=== PATIENT | male | born 1955 | race Caucasian/White ===

== ENCOUNTER 2017-09-11 14:19 | Inpatient (IN) | payer OTHER ==
[~2017-09-11] VITALS: Ht 175.3 cm; Wt 88.5 kg
[2017-09-11 15:12] LABS: CLARITY,URINE CLEAR (CLEAR); COLOR,URINE YELLOW (YELLOW); KETONES,URINE NEGATIVE (NEGATIVE); LEUKOCYTE ESTERASE ,URINE NEGATIVE (NEGATIVE); NITRITE,URINE NEGATIVE (NEGATIVE); PROTEIN,URINE DIPSTICK NEGATIVE (NEGATIVE); URINE UROBILINOGEN 0.2 mg/dL (0.2 - 1)
[2017-09-11 15:13] LABS: BILIRUBIN,URINE NEGATIVE (NEGATIVE)
[2017-09-11 15:24] LABS: EPITHELIAL CELLS,URINE FEW /LPF
[2017-09-11 17:42] LABS: BASOPHILS # (AUTO) 0.1 (0.0-0.1); BASOPHILS % 0.6 % (0.0-1.0); EOSINOPHILS # (AUTO) 0.2 (0.0-0.4); EOSINOPHILS % 2.2 % (0.0-6.0); HEMATOCRIT 49.1 % (38.2-49.6); HEMOGLOBIN 16.6 g/dL (14.0-18.0); LYMPHOCYTES # (AUTO) 1.8 (1.0-3.2); LYMPHOCYTES % 20.1 % (18.0-39.1); MEAN CORPUSCULAR HGB CONC 33.8 g/dL (31-35); MEAN CORPUSCULAR VOLUME 94.8 fL (81-99); MONOCYTES # (AUTO) 0.4 (0.2-0.8); MONOCYTES % 4.9 % (4.4-11.3); NEUTROPHILS # (AUTO) 6.3 (2.1-6.9); NEUTROPHILS % 71.9 % (38.7-80.0); PLATELET COUNT 165 x10e3/uL (140-360); RED BLOOD COUNT 5.18 x10e6/uL (4.3-5.7); RED CELL DISTRIBUTION WIDTH 12.6 % (11.7-14.4)
[2017-09-11 17:59] LABS: ANION GAP 14.3 mmol/L (8-16); CALCIUM 10.2 mg/dL (8.4-10.2)
[2017-09-11 18:02] LABS: POTASSIUM 5.3 mmol/L (3.5-5.1)
--- NOTE | 2017-09-11 18:05 | Diagnostic Imaging Report ---
EXAM: CT Abdomen and Pelvis WITHOUT contrast INDICATION: Right flank pain. Kidney stones. COMPARISON: None. TECHNIQUE: Abdomen and pelvis were scanned utilizing a multidetector helical scanner from the lung base to the pubic symphysis without administration of IV contrast. Absence of intravenous contrast decreases sensitivity for detection of focal lesions and vascular pathology. Coronal and sagittal reformations were obtained. Routine protocol was performed. IV CONTRAST: None. ORAL CONTRAST: Water RADIATION DOSE: Total DLP: 657.41 mGy*cm Estimated effective dose: (DLP x 0.015 x size factor) mSv COMPLICATIONS: None FINDINGS: LINES and TUBES: None. LOWER THORAX: Unremarkable HEPATOBILIARY: No focal hepatic lesions. No biliary ductal dilation. GALLBLADDER: No radio-opaque stones or sludge. No wall thickening. SPLEEN: No splenomegaly. PANCREAS: No focal masses or ductal dilatation. ADRENALS: No adrenal nodules. KIDNEYS/URETERS: 4 mm calculus is present within the distal right ureter on coronal image 61. There is mild dilatation of the right ureter and pelvicalyceal system. 2 mm calculus in the upper pole of the right kidney on coronal image 68. 4 mm calculus is present the lower pole of the left kidney on coronal image 61. 2 mm calculus is in the upper pole of the left kidney on coronal images 66. Bilateral low-attenuation renal lesions suggestive of cysts, the largest in the left kidney measuring 4.4 cm on image 26 series 2. GI TRACT: No abnormal distention, wall thickening, or evidence of bowel obstruction. Appendix is normal. A few small scattered colonic diverticula without diverticulitis. PELVIC ORGANS/BLADDER: Unremarkable. LYMPH NODES: No lymphadenopathy. VESSELS: Atherosclerotic calcifications of the abdominal aorta and iliac arteries with mild focal ectasia of the infrarenal abdominal aorta measuring 2.7 cm on image 47 series 2. PERITONEUM / RETROPERITONEUM: No free air or fluid. BONES: Mild levoscoliosis and multilevel degenerative changes of the lumbar spine. SOFT TISSUES: Unremarkable. IMPRESSION: 1. 4 mm obstructing calculus in the distal right ureter. Mild right hydronephrosis. 2. Bilateral subcentimeter renal calculi as detailed above. 3. Bilateral low-attenuation renal lesions consistent with cysts. Signed by: Dr. Lloyd Rivas M.D. on 09/11/2017 6:01 PM
[2017-09-11] MEDS ORDERED: MORPHINE SULFATE 2 MG/ML SYR IV PRN (19:00)
[2017-09-11] MEDS ORDERED: ONDANSETRON HCL INJ 2 MG/ML VIAL IV PRN (19:00)
--- OUTSIDE RECORDS SUMMARY | 2017-09-11 20:10 | XMS REPORT ---
Author Author [facility] Address Unknown Phone Unavailable Care Team Providers Care Order Taker Name Role Phone LYUDMILA FINCH Unavailable Unavailable Problems This patient has no known problems. Allergies, Adverse Reactions, Alerts This patient has no known allergies or adverse reactions. Medications This patient has no known medications. Results Test Description Test Time Test Comments Text Results Atomic Results Result Comments CT ABDOMEN/PELVIS WO [address] [address] Patient Name: NELDA ELMORE MR #: [id number] : 1955 Age/Sex: 62/M Req #: [id number] Adm Physician: Ordered by: RIVER CRAWFORD PULMONARY PHYSICIAN Report #: [id number] Location: ER Room/Bed: Procedure: [id number] CT/CT ABDOMEN/PELVIS WO Exam Date: 09/11/17 Exam Time: 1715 REPORT STATUS: Signed EXAM: CT Abdomen and Pelvis WITHOUT contrast INDICATION: Right flank pain. Kidney stones. COMPARISON: None. TECHNIQUE: Abdomen and pelvis were scanned utilizing a multidetector helical scanner from the lung base to the pubic symphysis without administration of IV contrast. Absence of intravenous contrast decreases sensitivity for detection of focal lesions and vascular pathology. Coronal and sagittal reformations were obtained. Routine protocol was performed. IV CONTRAST: None. ORAL CONTRAST: Water RADIATION DOSE: Total DLP: 657.41 mGy*cm Estimated effective dose: (DLP x 0.015 x size factor) mSv COMPLICATIONS: None FINDINGS: LINES and TUBES: None. LOWER THORAX : Unremarkable HEPATOBILIARY: No focal hepatic lesions. No biliary ductal dilation. GALLBLADDER: No radio-opaque stones or sludge. No wall thickening. SPLEEN: No splenomegaly. PANCREAS: No focal masses or ductal dilatation. ADRENALS: No adrenal nodules. KIDNEYS/URETERS: 4 mm calculus is present within the distal right ureter on coronal image 61. There is mild dilatation of the right ureter and pelvicalyceal system. 2 mm calculus in the upper pole of the right kidney on coronal image 68. 4 mm calculus is present the lower pole of the left kidney on coronal image 61. 2 mm calculus is in the upper pole of the left kidney on coronal images 66. Bilateral low-attenuation renal lesions suggestive of cysts, the largest in the left kidney measuring 4.4 cm on image 26 series 2. GI TRACT: No abnormal distention, wall thickening, or evidence of bowel obstruction. Appendix is normal. A few small scattered colonic diverticula without diverticulitis. PELVIC ORGANS/BLADDER: Unremarkable. LYMPH NODES: No lymphadenopathy. VESSELS: Atherosclerotic calcifications of the abdominal aorta and iliac arteries with mild focal ectasia of the infrarenal abdominal aorta measuring 2.7 cm on image 47 series 2. PERITONEUM / RETROPERITONEUM : No free air or fluid. BONES: Mild levoscoliosis and multilevel degenerative changes of the lumbar spine. SOFT TISSUES: Unremarkable. IMPRESSION: 1. 4 mm obstructing calculus in the distal right ureter. Mild right hydronephrosis. 2. Bilateral subcentimeter renal calculi as detailed above. 3. Bilateral low-attenuation renal lesions consistent with cysts. Signed by: Dr. Lloyd Yoder M.D. on 09/11/2017 6:01 PM Dictated By: CAN YODER MD, MD 00 Transcribed By: KELSEY on 09/11/171800 COPY TO: RIVER CRAWFORD NP
[2017-09-11 22:57] LABS: ALBUMIN 3.8 g/dL (3.5-5.0); ANION GAP 11.6 mmol/L (8-16); CALCIUM 9.9 mg/dL (8.4-10.2); CREATININE, SERUM 2.89 mg/dL (0.72-1.25); POTASSIUM 4.6 mmol/L (3.5-5.1)
[2017-09-11] MEDS ORDERED: METOPROLOL TART25 MG PO (23:50)
[2017-09-11] MEDS ORDERED: FOLIC ACID1 MG PO (23:50)
[2017-09-11] MEDS ORDERED: ALLOPURINOL300 MG PO (23:50)
[2017-09-11] MEDS ORDERED: LORAZEPAM1 MG PO (23:50)
[2017-09-11] MEDS ORDERED: LISINOPRIL2.5 MG PO (23:50)
[2017-09-11] MEDS ORDERED: SIMVASTATIN40 MG PO (23:50)
[2017-09-12] MEDS: SODIUM CHLORIDE 0.9% 1000ML 1,000 ML IV SCH ×2 (00:15→09:11)
[2017-09-12 03:30] VITALS: BP 152/70
[2017-09-12 07:24] LABS: BASOPHILS % 0.5 % (0.0-1.0); EOSINOPHILS # (AUTO) 0.2 (0.0-0.4); EOSINOPHILS % 2.7 % (0.0-6.0); HEMATOCRIT 43.7 % (38.2-49.6); HEMOGLOBIN 14.8 g/dL (14.0-18.0); LYMPHOCYTES # (AUTO) 2.1 (1.0-3.2); LYMPHOCYTES % 24.9 % (18.0-39.1); MEAN CORPUSCULAR HEMOGLOBIN 32.3 pg (28-32); MEAN CORPUSCULAR HGB CONC 33.9 g/dL (31-35); MEAN CORPUSCULAR VOLUME 95.4 fL (81-99); MONOCYTES # (AUTO) 0.8 (0.2-0.8); MONOCYTES % 9.3 % (4.4-11.3); NEUTROPHILS # (AUTO) 5.4 (2.1-6.9); NEUTROPHILS % 62.3 % (38.7-80.0); PLATELET COUNT 153 x10e3/uL (140-360); RED BLOOD COUNT 4.58 x10e6/uL (4.3-5.7); RED CELL DISTRIBUTION WIDTH 12.7 % (11.7-14.4)
[2017-09-12 07:44] LABS: ANION GAP 11.6 mmol/L (8-16); CALCIUM 9.2 mg/dL (8.4-10.2); CREATININE, SERUM 2.54 mg/dL (0.72-1.25); POTASSIUM 4.6 mmol/L (3.5-5.1)
[2017-09-12 08:45] VITALS: BP 152/70
[2017-09-12 10:28] VITALS: BP 164/79
[2017-09-12] MEDS ORDERED: LISINOPRIL 2.5 MG TAB PO SCH (10:30)
[2017-09-12] MEDS: METOPROLOL TARTRATE 25 MG TAB PO SCH (10:37)
[2017-09-12 12:15] LABS: CREATININE, SERUM 2.54 mg/dL (0.72-1.25)
--- NOTE | 2017-09-12 13:03 | Consultation ---
DATE OF CONSULTATION: September 12, 2017 NEPHROLOGY CONSULTATION REASON FOR CONSULTATION: Acute kidney injury on chronic kidney disease. This is a pleasant, 62-year-old male who is known to have hypertension and gout. He takes multiple blood pressure medications along with allopurinol. He has also dyslipidemia for which he takes cholesterol medicine, simvastatin. He was recently treated for a urinary tract infection. For the last week, he has been having right flank pain. It started as mid back pain and then radiated to the right flank and the inguinal area. The pain is sharp, scale 9/10. He denies dysuria, but he had 1 episode of hematuria last week. He went to see the doctor a few days ago, and he was prescribed Levaquin 500 mg daily for possible UTI. The patient came back to the hospital because he is complaining of severe pain, and CT of the abdomen and pelvis showed multiple kidney stones. His creatinine was elevated; thus we were consulted. As per the patient, he was told that he has to see a kidney doctor as an outpatient by his PCP because, as per the patient, his kidney function was between 50% and 55%. REVIEW OF SYSTEMS: Negative otherwise. PAST MEDICAL HISTORY: As mentioned above. Also, he has history of coronary artery disease status post angioplasty with 1 stent in 2000 along with dyslipidemia, hypertension, and gout. PAST SURGICAL HISTORY: Status post removal of soft, benign tissue behind the right ear for a skin growth. Status post heart cath with 1 stent. FAMILY HISTORY: Positive for hypertension and heart disease. SOCIAL HISTORY: Denies alcohol or IV drug abuse. He smokes 1 pack per day. PHYSICAL EXAMINATION VITALS: Today, blood pressure 164/79, heart rate 68, temperature 98.9. GENERAL APPEARANCE: No acute distress. HEAD, EARS, EYES, NECK: No lymphadenopathy. HEART: Regular rate and rhythm. LUNGS: Good bilateral air entry. ABDOMEN: Soft, nontender. EXTREMITIES: No edema. LABS: Hemoglobin 14.8. Sodium 140. Potassium came down from 5.3 to 4.6. BUN is 34, and creatinine is down from 3 to 2.5. His urine pH is 6. CT of the abdomen and pelvis was reported, and it showed 4-mm obstructing calculus in the distal right ureter, mild hydronephrosis on the right side, bilateral subcentimeter renal calculi, bilateral halo attenuation renal lesions consistent with cysts. ASSESSMENT AND PLAN 1. Acute kidney injury on chronic kidney disease, stage 3. As per the patient, his glomerular filtration rate was around in the 50s, and he was told to see a kidney doctor as an outpatient. This time, I expected worsening in the setting of kidney stone with right ureteral obstruction and mild hydronephrosis. He is on maintenance IV fluids. In the meantime, hold lisinopril and other nephrotoxin and no nonsteroidal anti-inflammatory drugs. Monitor kidney function. So far, creatinine is improving. We will keep monitoring. Check fractional excretion of sodium and repeat ultrasound. 2. Nephrolithiasis, bilateral, with right kidney ureteral stone with obstruction, partial with mild hydronephrosis. We are going to do 24-hour urine collection for stone workup and give the patient a strainer for his urine to collect any possible kidney stone that can pass. In the meantime, pain control, and urology has been consulted for possible cystoscopy or lithotripsy. Will follow urology's recommendations. 3. Gout. Check uric acid. 4. Hyperchloremic acidosis suspected from normal saline. We are going to change the IV fluids to half-NS with sodium bicarbonate to alkalinize the urine. 5. Hypertension. The blood pressure is elevated mildly from the pain, holding lisinopril in the meantime in the setting of acute kidney injury. We are going to add hydralazine. 6. Possible urinary tract infection. Check urine culture but recently treated with Levaquin. 7. Coronary artery disease, status post angioplasty with 1 stent. It looks clinically compensated. No chest pain or shortness of breath. Thank you for the consult. We will update the primary team for further recommendations. AJIT SUTTON MD Job#: [id number]
[2017-09-12] MEDS: SODIUM BICARBONATE 8.4% 50 ML in SODIUM CHLORIDE 0.45% 1,000 ML IV SCH (13:32)
[2017-09-12] MEDS: HYDRALAZINE HCL 25 MG TAB PO SCH (16:46)
[2017-09-12] MEDS: ACETAMINOPHEN 325 MG TAB PO PRN ×3 (16:46→23:45)
[2017-09-12 16:55] VITALS: BP 163/82
--- NOTE | 2017-09-12 17:46 | Diagnostic Imaging Report ---
PROCEDURE:X-RAY ABDOMEN - KUB COMPARISON:[facility], CT, CT ABDOMEN/PELVIS WO, 09/11/2017, 17:14. INDICATIONS:KIDNEY STONES FINDINGS: Bowel: Bowel gas pattern is normal. No dilated bowel loops. No significant stool burden. Calcifications: Punctate intrarenal calculi identified on CT are not visible by x-ray. There are no calcifications along the expected course of the ureters. A calcification inferior to the right sacroiliac joint measures 2 mm and was present on lime sludge mixer image of CT. No calculus along the expected course of the left ureter. Organomegaly: None. Bones: Levoscoliosis of the lumbar spine with superimposed degenerative changes are stable. Bone island in the roof of right acetabulum is stable. CONCLUSION: 4 mm calculus in the distal right ureter on CT is not visible radiographically. Punctate bilateral intrarenal calculi are not visible radiographically. Dictated by: Edison Champion M.D. on 09/12/2017 at 17:46 Electronically approved by: Edison Champion M.D. on 09/12/2017 at 17:46
--- NOTE | 2017-09-12 17:57 | Diagnostic Imaging Report ---
PROCEDURE:US RETROPERITONEAL ( KIDNEY ). COMPARISON:[facility], CT, CT ABDOMEN/PELVIS WO, 09/11/2017, 17:14. INDICATIONS:GOMEZ, STONES TECHNIQUE: Srivastava-scale and color sonographic images of the bilateral kidneys and bladder where obtained in transverse and longitudinal planes. FINDINGS: RIGHT KIDNEY: Measures 9.6 cm in length. Cysts: 2 adjacent cysts in the lower pole measure 8 x 12 x 15 mm and 8 x 9 x 8 mm. Upper pole cyst measures 14 x 12 x 13 mm cyst in the hilum measures 13 x 10 x 11 mm cyst the lateral interpolar cortex measures 10 x 10 x 11 mm. Solid masses: None Stones: None Hydronephrosis: None Echogenicity: Increased LEFT KIDNEY: Measures 10.8 cm in length. Cysts: Multiple cysts are present measuring up 4.2 x 3.8 x 4 point cm. The largest cysts are located in the interpolar region. Solid masses: None Stones: None Hydronephrosis: None Echogenicity: Increased Bladder: Well-distended. No mural thickening. Only the left ureteral jet was visualized. Prostate: Measures 2.0 x 3.0 x 2.5 cm. Survey images of the liver and spleen demonstrate no focal abnormality. CONCLUSION: 1. Increased renal echotexture consistent with medical renal disease. 2. Punctate intrarenal calculi identified on CT are not visible sonographically. 3. Bilateral renal cysts. 4. Nonvisualization of right ureteral jet suggestive of ureteral obstruction as suspected on CT. No sonographic evidence of hydronephrosis. Dictated by: Edison Champion M.D. on 09/12/2017 at 17:57 Electronically approved by: Edison Champion M.D. on 09/12/2017 at 17:57
[2017-09-12 20:00] VITALS: BP 157/80
[2017-09-12] MEDS: SIMVASTATIN 40 MG TAB PO SCH (21:39)
[2017-09-13] VITALS: BP 185/93
[2017-09-13] MEDS ORDERED: CLONIDINE HCL 0.1 MG TAB PO PRN (01:15)
[2017-09-13] MEDS: NICOTINE 14 MG/EA PATCH TOP SCH ×2 (01:16→06:53)
[2017-09-13] MEDS: LORAZEPAM 1 MG TAB PO PRN ×2 (01:22→21:30)
[2017-09-13] MEDS: SODIUM BICARBONATE 8.4% 50 ML in SODIUM CHLORIDE 0.45% 1,000 ML IV SCH ×2 (02:00→05:35)
[2017-09-13 04:00] VITALS: BP 150/79
[2017-09-13] MEDS: ACETAMINOPHEN 325 MG TAB PO PRN (05:49)
[2017-09-13 07:13] LABS: CALCIUM 9.2 mg/dL (8.4-10.2); CREATININE, SERUM 2.69 mg/dL (0.72-1.25); MAGNESIUM 1.9 MG/DL (1.3-2.1); PHOSPHORUS 3.4 MG/DL (2.3-4.7)
[2017-09-13] MEDS: HYDRALAZINE HCL 25 MG TAB PO SCH ×2 (09:00→17:00)
[2017-09-13] MEDS ORDERED: METOPROLOL TARTRATE 25 MG TAB PO SCH (09:00)
[2017-09-13] MEDS: ALLOPURINOL 300 MG TAB PO SCH (09:00)
[2017-09-13] MEDS ORDERED: LISINOPRIL 2.5 MG TAB PO SCH (09:00)
[2017-09-13] MEDS: FOLIC ACID 1 MG TAB PO SCH (09:00)
[2017-09-13] MEDS: METOPROLOL TARTRATE 25 MG TAB PO SCH (09:00)
[2017-09-13 09:17] VITALS: BP 148/77
[2017-09-13] MEDS: SODIUM CHLORIDE 0.9% 1000ML 1,000 ML IV SCH ×2 (11:45→22:29)
[2017-09-13] MEDS ORDERED: IOPAMIDOL 300MG/ML 50ML INFUS..BTL IV ONE (13:03)
[2017-09-13 13:29] VITALS: BP 180/83
[2017-09-13] MEDS ORDERED: LEVOFLOXACIN 500MG/D5W 100ML 100 ML IV ONE (13:44)
--- NOTE | 2017-09-13 14:12 | Consultation ---
DATE OF CONSULTATION: September 12, 2017 UROLOGY CONSULTATION CHIEF UROLOGICAL COMPLAINT/REASON FOR CONSULTATION: Hydronephrosis and stone. HISTORY OF PRESENT ILLNESS: Mr. Mckenzie is a very pleasant 62-year-old male admitted to the hospital with multiple kidney stones especially in the right ureter with proximal hydronephrosis and colic. He and I had a long discussion of alternatives and risks of doing nothing, stent placement, percutaneous surgery, open surgery. He voices the options, alternatives, risks, and benefits. He elected to proceed. PAST MEDICAL HISTORY: Heart stents, UTI, hypertension, gout. MEDICATIONS: Please see MAR. ALLERGIES: NKDA. SOCIAL HISTORY: He does not smoke or drink. FAMILY HISTORY: Denies any urological disease. REVIEW OF SYSTEMS: Noncontributory other than for history of present illness. PHYSICAL EXAMINATION GENERAL: Elderly man in no acute distress. VITALS: Currently afebrile. Stable vital signs. HEENT: Sclerae anicteric. NECK: Supple. BACK: Without costovertebral angle tenderness. ABDOMEN: Soft and nontender. No palpable hernias. No hepatosplenomegaly. : Normal male external genitalia. EXTREMITIES: No edema. SKIN: Intact. PERTINENT LABORATORY DATA: Urinalysis normal. Hemoglobin 16, hematocrit 49 and platelet count 165,000, white count 8000. Sodium 138, potassium 5.3, chloride 104, bicarb 25, BUN 37, creatinine 3, glucose 116. IMPRESSION 1. Acute renal failure. 2. Right hydronephrosis. 3. Bilateral renal calculi. 4. Right ureteral calculi. 5. Left renal mass suggestive of cysts. PLAN: Suggest a brief trial of passage with the 4-mm stone. Should this fail, will need stenting. Thank you for allowing me to participate in the care of your patient. Will be happy to follow along with you. Job#: [id number] [place] cc:EZ BELL MD
--- NOTE | 2017-09-13 14:35 | Operative Report ---
DATE OF PROCEDURE: September 11, 2017 PREOPERATIVE DIAGNOSES 1. Right hydronephrosis. 2. Renal calculi. POSTOPERATIVE DIAGNOSES 1. Right hydronephrosis. 2. Renal calculi. 3. Urethral stricture disease. PROCEDURES 1. Cystourethroscopy with calibration and dilation of urethral stricture (entirely separate procedure for urethral stricture disease). 2. Cystourethroscopy with left ureteral catheterization and left retrograde pyelogram (separate procedure for diagnosis of renal calculi). 3. Cystourethroscopy with insertion of a right indwelling ureteral stent (entirely separate procedure for the diagnosis of right hydronephrosis). 4. Supervision of fluoroscopy. 5. Interpretation of retrograde ureteropyelography. ANESTHESIA: General. ESTIMATED BLOOD LOSS: Minimal. COMPLICATIONS: None. INDICATIONS FOR PROCEDURE: Mr. Mckenzie is a very pleasant 62-year-old male who now presents with right-sided renal colic, and found to have an obstructed right ureter due to stone and bilateral renal calculi. He and I had a long discussion about alternatives, risks and benefits including doing nothing, cystoscopy, stent placement, percutaneous nephrostomy, open surgery. He voices the options, alternatives, risks and the benefits and elected to proceed. PROCEDURE IN DETAIL: After informed consent was obtained, the patient was taken to the operating room and placed supine on the table. Underwent general anesthesia. Placed in the dorsal lithotomy position, and sterilely prepped and draped in the standard fashion for cystoscopy. An attempt was made to insert a 22.5-Zambian cystoscope and this failed. The urethra was calibrated to 19-Zambian and dilated to 20-Zambian. A 19.8-Zambian cystoscope was inserted per urethra. There was trilobar prostatic hypertrophy. Panendoscopy of the bladder revealed moderate trabeculations. No tumors. No stones. Both ureteral orifices were catheterized with a 5-Zambian open-ended catheter. Retrograde pyelograms were performed. It revealed stones in the left kidney and a right proximal ureteral stone. It was radiolucent, proximal hydronephrosis as well as stones in the right kidney. Right ureteral guidewire was inserted. Right ureteral stent was deployed and coiled in the renal pelvis and coil in the bladder. The patient's bladder was drained. Awakened from anesthesia and transported to the recovery room in excellent condition. SUPERVISION OF FLUOROSCOPY, INTERPRETATION OF RETROGRADE URETERAL PYELOGRAPHY: I was present throughout the entire procedure and I supervised the use of fluoroscopy. There was no radiologist present at any time during this procedure. Attention was turned toward the left and right ureteral orifices. With a 5-Zambian open-ended catheter, retrograde pyelograms were performed revealing stones in the left lower pole of the kidney, right proximal ureteral calculi, right renal calculi, right hydronephrosis, right stent in appropriate position. Job#: [id number] RI
[2017-09-13 15:52] LABS: TOTAL PROTEIN, URINE < 6.8 mg/dL (1-14)
[2017-09-13 16:06] LABS: CREATININE,URINE RANDOM 46.33 mg/dL (63-166)
[2017-09-13 17:08] LABS: EOSINOPHIL SMEAR,URINE NONE SEEN (NONE SEEN)
[2017-09-13] MEDS ORDERED: ONDANSETRON HCL INJ 2 MG/ML VIAL ONE (17:39)
[2017-09-13] MEDS ORDERED: LIDOCAINE HCL 2% LOCAL INJ 5 ML SDV VIAL INJ ONE (17:39)
[2017-09-13] MEDS ORDERED: DESFLURANE 240 ML BTL INH ONE (17:39)
[2017-09-13] MEDS ORDERED: PROPOFOL IV EMULSION 10 MG/ML 20 ML VIAL ONE (17:39)
[2017-09-13] MEDS ORDERED: DEXAMETHASONE SOD PHOS INJ 4 MG/ML VIAL ONE (17:39)
[2017-09-13] MEDS ORDERED: MIDAZOLAM HCL 2 MG/2 ML VIAL ONE (19:14)
[2017-09-13] MEDS ORDERED: FENTANYL CITRATE/PF 100MCG/2 ML INJ ONE (19:14)
[2017-09-13 20:00] VITALS: BP 138/76
[2017-09-13] MEDS: SIMVASTATIN 40 MG TAB PO SCH (20:40)
[2017-09-14] VITALS: BP 135/76
[2017-09-14 00:31] VITALS: BP 138/76
[2017-09-14 04:00] VITALS: BP 138/60
[2017-09-14 07:18] LABS: ANION GAP 11.8 mmol/L (8-16); CALCIUM 9.4 mg/dL (8.4-10.2); CREATININE, SERUM 1.85 mg/dL (0.72-1.25); MAGNESIUM 1.6 MG/DL (1.3-2.1); PHOSPHORUS 3.8 MG/DL (2.3-4.7); POTASSIUM 5.8 mmol/L (3.5-5.1)
[2017-09-14 07:51] VITALS: BP 168/88
[2017-09-14] MEDS: HYDRALAZINE HCL 25 MG TAB PO SCH (08:57)
[2017-09-14] MEDS: NICOTINE 14 MG/EA PATCH TOP SCH (08:57)
[2017-09-14] MEDS: METOPROLOL TARTRATE 25 MG TAB PO SCH (08:57)
[2017-09-14] MEDS: ALLOPURINOL 300 MG TAB PO SCH (08:57)
[2017-09-14] MEDS: FOLIC ACID 1 MG TAB PO SCH (08:57)
--- NOTE | 2017-09-14 09:03 | Discharge Summary ---
Mr. Mckenzie is a 62-year-old man with a history of coronary artery disease, status post stent, hypertension, hyperlipidemia, gout, came to the emergency room complaining of 1-week prior episode of hematuria, right side abdominal flank pain and back pain, as well as deterioration of renal function. The patient was admitted to the hospital. He was evaluated by urology. Had a stent placed on the right side. He is being followed up by financial institution treasurer for his renal failure. PHYSICAL EXAMINATION GENERAL: Today, he is awake and alert. VITALS: Temperature is 96.6, blood pressure 168/88. HEART: Regular rate. LUNGS: Clear to auscultation. ABDOMEN: Distended and soft. LOWER EXTREMITIES: No edema. No erythema. BLOOD WORK: Potassium is 5.8, creatinine is 1.85, glucose 109. White count 8.61, hemoglobin 14.8, hematocrit 43.7. He had an abdominal CT done that showed obstructing calculus in the distal right ureter with right hydronephrosis on admission. Renal ultrasound shows increased renal echotexture consistent with medical renal disease. ASSESSMENT AND PLAN 1. Right nephrolithiasis, status post stent. 2. Right hydronephrosis. 3. [id number] renal failure, stage 3 probably. 4. Uncontrolled hypertension. 5. Coronary artery disease, status post stent. 6. Hyperlipidemia. 7. Gout. PLAN: At the present time, is to correct his potassium and repeat it in the afternoon. If normal, the patient is going to be discharged home. He is going to follow up with his PCP next week. He is to continue his: 1. Folic acid 1 mg daily. 2. Lorazepam 1 mg at bedtime. 3. Allopurinol 300 mg daily. 4. Metoprolol 25 mg daily. 5. Simvastatin 40 mg daily. 6. We are going to increase hydralazine to 50 mg 3 times a day. 7. We are going to repeat the BMP this afternoon to monitor potassium. All of this was discussed with the patient. All questions were answered to satisfaction. Please see home medication reconciliation list. EZ BELL MD Job#: [id number] [place]
[2017-09-14] MEDS ORDERED: SOD POLYSTYRENE SULFONATE SUSP 15 GM/60 ML BTL PO STA (12:54)
[2017-09-14] MEDS ORDERED: INSULIN REGULAR, HUMAN 100 UNIT/1 ML 3ML VIAL IV ONE (13:00)
[2017-09-14] MEDS ORDERED: DEXTROSE 50% SYRINGE 50 ML IV ONE (13:00)
[2017-09-14] MEDS ORDERED: HYDRALAZINE HCL 25 MG TAB PO SCH (15:00)
[2017-09-14] MEDS: SODIUM CHLORIDE 0.9% 1000ML 1,000 ML IV SCH (15:22)
[2017-09-14 16:59] LABS: ANION GAP 14.1 mmol/L (8-16); CALCIUM 10.1 mg/dL (8.4-10.2); CREATININE, SERUM 1.89 mg/dL (0.72-1.25); POTASSIUM 5.1 mmol/L (3.5-5.1)
[2017-09-14] MEDS ORDERED: HYDRALAZINE HCL10 MG PO (17:45)
== END 2017-09-14 18:12 | disposition home or self-care (01) | DRG 660 ==
LOC: ER 14:51 → ERHOLD 20:07 → MED/SURG 09-12 03:01
PROVIDERS: ADMIT Internal Medicine; ATTEND Internal Medicine
PROC: 0T7 Urinary System, Dilation (ICD-10-PCS; 2017-09-13)
PROC: 0T7D4ZZ Dilation of Urethra, Percutaneous Endoscopic Approach (ICD-10-PCS; 2017-09-13)
PROC: BT1D1ZZ Fluoroscopy of Right Kidney, Ureter and Bladder using Low Osmolar Contrast (ICD-10-PCS; 2017-09-13)
PROC: 0T764DZ Dilation of Right Ureter with Intraluminal Device, Percutaneous Endoscopic Approach (ICD-10-PCS; 2017-09-13)
PROC: BT1F1ZZ Fluoroscopy of Left Kidney, Ureter and Bladder using Low Osmolar Contrast (ICD-10-PCS; principal; 2017-09-13 13:30)
DX: N13.2 Hydronephrosis with renal and ureteral calculous obstruction (principal); N20.2 Calculus of kidney with calculus of ureter; E87.2 Acidosis; E87.8 Other disorders of electrolyte and fluid balance, not elsewhere classified; N17.9 Acute kidney failure, unspecified; N18.3 Chronic kidney disease, stage 3 (moderate); N39.0 Urinary tract infection, site not specified; I12.9 Hypertensive chronic kidney disease with stage 1 through stage 4 chronic kidney disease, or unspecified chronic kidney disease; M10.9 Gout, unspecified; I25.10 Atherosclerotic heart disease of native coronary artery without angina pectoris; N28.1 Cyst of kidney, acquired; Z95.5 Presence of coronary angioplasty implant and graft
CPT/HCPCS: 36415; 74018; 74176; 74420; 76770; 80048; 80053; 81001; 81015; 81050; 82575; 82948; 83735; 83970; 84100; 84156; 84300; 84550; 85025; 87086; 93005; 99284; J1100; J1956; J2001; J2250; J2405; J7030; J7799

== ENCOUNTER → 2017-10-13 | Day surgery (SDC) | payer OTHER ==
[~2017-10-13] MED LIST: ALLOPURINOL300 MG PO; CEFTRIAXONE SOD 1 GM VIAL ONE; DEXAMETHASONE SOD PHOS INJ 4 MG/ML VIAL ONE; EPHEDRINE SULFATE INJ 50 MG/10 ML SYR ONE; FENTANYL CITRATE/PF 100MCG/2 ML INJ ONE; FOLIC ACID1 MG PO; HYDRALAZINE HCL10 MG PO; LIDOCAINE HCL 2% LOCAL INJ 5 ML SDV VIAL INJ ONE; LISINOPRIL2.5 MG PO; LORAZEPAM1 MG PO; METOPROLOL TART25 MG PO; MIDAZOLAM HCL 2 MG/2 ML VIAL ONE; ONDANSETRON HCL INJ 2 MG/ML VIAL ONE; PROPOFOL IV EMULSION 10 MG/ML 20 ML VIAL ONE; SEVOFLURANE INHAL SOLN 250 ML PEN BTL ONE; SIMVASTATIN40 MG PO; VITAMIN B-121000 MCG PO; VITAMIN D31000 UNIT PO
--- OUTSIDE RECORDS SUMMARY | 2017-10-13 05:53 | XMS REPORT | Continuity of Care Document ---
Author Author [facility] Organization [facility] Address [address] [place] [address] Phone Unavailable Care Team Providers Care Catalyst Supervisor Name Role Phone NO, PCP PCP Unavailable Insurance Providers Guarantor Easton Elmore Address [address] [place] [address] Email [email or web address] [facility] Community Health Choice Excha Policy Number [id number] Subscriber's Name Easton Elmore Relationship 18 Self / Same As Patient Effective Date 17 Advance Directives Directive Response Recorded Date/Time Does the patient have an advance directive? No 09/12/17 3:41am If yes, is advance directive on file with [facility]? No 09/12/17 3:41am If not on file with [facility] will patient provide a copy? No 09/12/17 3:41am Do you have a Directive to Physician? No 09/11/17 4:44pm Do you have a Medical Power of Senior Librarian? No 09/11/17 4:44pm Do you have an out of hospital Do Not Resuscitate Order? No 09/11/17 4:44pm Do you have any special needs we should be aware of? No 09/11/17 4:44pm Do you have a support person here with you today? Yes 09/11/17 4:44pm Did patient receive Notice of Privacy Practices? Yes 09/11/17 4:44pm Did patient receive patient rights and responsibilities? Yes 09/11/17 4:44pm Problems Medical Problem Onset Date Status Kidney stone Unknown Renal failure Unknown Medications Current Home Medications Medication Dose Units Route Directions Days Qty Instructions Start Date Allopurinol 300 Mg Tablet 300 Mg Oral Daily 30 Tab Folic Acid 1 Mg Tablet 1 Mg Oral Daily 30 Tab Hydralazine Hcl 10 Mg Tablet 50 Mg Oral Every 8 Hours 90 Tab Lisinopril 2.5 Mg Tablet 2.5 Mg Oral Daily 30 Tab Lorazepam 1 Mg Tablet 1 Mg Oral Bedtime as needed for Insomnia Metoprolol Tartrate 25 Mg Tablet 25 Mg Oral Daily Simvastatin 40 Mg Tablet 40 Mg Oral Today At 9:00PM 30 Tab Family History Relationship Condition Age at Onset Recorded Date/Time Not Specified Family history of CVA Not Recorded 09/12/2017 3:53am 09 Brother Family history of diabetes mellitus Not Recorded 09/12/2017 3: 53am 32 Mother Family history of diabetes mellitus Not Recorded 09/12/2017 3:53am Social History Social History Problem Response Recorded Date/Time Onset Date Status Hx Psychiatric Problems No 09/12/2017 3:41am Not Applicable Not Applicable Hx Eating Disorder No 09/12/2017 3:41am Not Applicable Not Applicable Hx Substance Use Disorder No 09/12/2017 3:41am Not Applicable Not Applicable Hx Depression No 09/12/2017 3:41am Not Applicable Not Applicable Hx Alcohol Use No 09/12/2017 3:41am Not Applicable Not Applicable Hx Substance Use Treatment No 09/12/2017 3:41am Not Applicable Not Applicable Hx Physical Abuse No 09/12/2017 3:41am Not Applicable Not Applicable Smoking Status Start Date Stop Date Current every day smoker Hospital Discharge Instructions No hospital discharge instruction information available. Plan of Care Discharge Date 09/14/17 6:12pm Disposition HOME, SELF-CARE Instructions/Education Provided Kidney Stones Prescriptions See Medication Section Additional Instructions/Education FOLLOW UP WITH PCP IN 7-10 DAYS. FOLLOW UP WITH UROLOGIST DIRECTED. FOLLOW UP WITH PROGRAM DIRECTOR/MUSIC DIRECTOR IN 7-10 DAYS ACTIVITY TOLERATED. LOW POTASSIUM DIET. Functional Status Query Response Date Recorded Assistive Devices None September 12, 2017 3:49am Ambulation Ability Independent September 12, 2017 3:49am Toileting Ability Independent September 12, 2017 3:49am Allergies, Adverse Reactions, Alerts No known allergies. Immunizations No immunization information available. Vital Signs Acute Vital Signs Vital Response Date/Time Temperature (Fahrenheit) 96.6 degrees F (97.6 - 99.5) 09/14/2017 7:51am Pulse Pulse Rate (adult) 66 bpm (60 - 90) 09/14/2017 8:10am Respiratory Rate 16 bpm (12 - 24) 09/14/2017 8:10am Blood Pressure 168/88 mm Hg 09/14/2017 7:51am Height 5 ft 9 in 09/11/2017 2:26pm Weight 195 lb 09/11/2017 2:26pm Body Mass Index 28.8 kg/m^2 09/13/2017 7:30pm Results Laboratory Results Test Name Result Units Flags Reference Collection Date/Time Result Date/ Time Comments White Blood Count 8.61 x10e3/uL 4.8-10.8 09/12/2017 6:58am 09/12/2017 7 :44am Red Blood Count 4.58 x10e6/uL 4.3-5.7 09/12/2017 6:58am 09/12/2017 7: 44am Hemoglobin 14.8 g/dL 14.0-18.0 09/12/2017 6:58am 09/12/2017 7:44am Hematocrit 43.7 % 38.2-49.6 09/12/2017 6:58am 09/12/2017 7:44am Mean Corpuscular Volume 95.4 fL 81-99 09/12/2017 6:58am 09/12/2017 7: 44am Mean Corpuscular Hemoglobin 32.3 pg H 28-32 09/12/2017 6:58am 2017 7:44am Mean Corpuscular Hemoglobin Concent 33.9 g/dL 31-35 09/12/2017 6:58am 09/12/2017 7:44am Red Cell Distribution Width 12.7 % 11.7-14.4 09/12/2017 6:58am 2017 7:44am Platelet Count 153 x10e3/uL 140-360 09/12/2017 6:58am 09/12/2017 7: 44am Neutrophils (%) (Auto) 62.3 % 38.7-80.0 09/12/2017 6:58am 09/12/2017 7: 44am Lymphocytes (%) (Auto) 24.9 % 18.0-39.1 09/12/2017 6:58am 09/12/2017 7: 44am Monocytes (%) (Auto) 9.3 % 4.4-11.3 09/12/2017 6:58am 09/12/2017 7: 44am Eosinophils (%) (Auto) 2.7 % 0.0-6.0 09/12/2017 6:58am 09/12/2017 7: 44am Basophils (%) (Auto) 0.5 % 0.0-1.0 09/12/2017 6:58am 09/12/2017 7:44am IM GRANULOCYTES % 0.3 % 0.0-1.0 09/12/2017 6:58am 09/12/2017 7:44am Neutrophils # (Auto) 5.4 2.1-6.9 09/12/2017 6:58am 09/12/2017 7:44am Lymphocytes # (Auto) 2.1 1.0-3.2 09/12/2017 6:58am 09/12/2017 7:44am Monocytes # (Auto) 0.8 0.2-0.8 09/12/2017 6:58am 09/12/2017 7:44am Eosinophils # (Auto) 0.2 0.0-0.4 09/12/2017 6:58am 09/12/2017 7:44am Basophils # (Auto) 0.0 0.0-0.1 09/12/2017 6:58am 09/12/2017 7:44am Absolute Immature Granulocyte (auto 0.03 x10e3/uL 0-0.1 09/12/2017 6: 58am 09/12/2017 7:44am Urine Color YELLOW YELLOW 09/11/2017 2:53pm 09/11/2017 3:13pm Urine Clarity CLEAR CLEAR 09/11/2017 2:53pm 09/11/2017 3:13pm Urine Specific [place] 1.010 1.010-1.025 09/11/2017 2:53pm 2017 3:13pm Urine pH 6 5 - 7 09/11/2017 2:53pm 09/11/2017 3:13pm Urine Leukocyte Esterase NEGATIVE NEGATIVE 09/11/2017 2:53pm 2017 3:13pm Urine Nitrite NEGATIVE NEGATIVE 09/11/2017 2:53pm 09/11/2017 3:13pm Urine Protein NEGATIVE NEGATIVE 09/11/2017 2:53pm 09/11/2017 3:13pm Urine Glucose (UA) NEGATIVE NEGATIVE 09/11/2017 2:53pm 09/11/2017 3: 13pm Urine Ketones NEGATIVE NEGATIVE 09/11/2017 2:53pm 09/11/2017 3:13pm Urine Urobilinogen 0.2 mg/dL 0.2 - 1 09/11/2017 2:53pm 09/11/2017 3: 13pm Urine Bilirubin NEGATIVE NEGATIVE 09/11/2017 2:53pm 09/11/2017 3: 13pm Urine Blood NEGATIVE NEGATIVE 09/11/2017 2:53pm 09/11/2017 3:13pm Urine WBC NONE /HPF 0-5 09/11/2017 2:53pm 09/11/2017 3:24pm Urine RBC NONE /HPF 0-5 09/11/2017 2:53pm 09/11/2017 3:24pm Urine Bacteria NONE /HPF NONE 09/11/2017 2:53pm 09/11/2017 3:24pm Urine Epithelial Cells FEW /LPF NONE 09/11/2017 2:53pm 09/11/2017 3: 24pm Urine Eosinophils NONE SEEN NONE SEEN 09/13/2017 2:00pm 09/13/2017 5: 08pm Urine Random Total Protein < 6.8 mg/dL 1-14 09/13/2017 2:00pm 2017 3:52pm Urine Collection Time 24 hrs 09/13/2017 2:00pm 09/13/2017 4:09pm Urine Total Volume 3000 ml/24hr H 800-2000 09/13/2017 2:00pm 09/13/2017 4:09pm Urine Random Sodium 92 mmol/L 09/13/2017 2:00pm 09/13/2017 4:09pm Urine Creatinine 46.33 mg/dL L 63-166 09/13/2017 2:00pm 09/13/2017 4: 09pm Urine Creatinine 24 Hour 1390 mg/24hr 800-2000 09/13/2017 2:00pm 2017 4:09pm Creatinine Clearance 36 ml/min L 95-145 09/13/2017 2:00pm 09/13/2017 4: 09pm Urine Sodium 24 Hour 276 MMOL/24H H 40-220 09/13/2017 2:00pm 09/13/2017 4:09pm Sodium Level 139 mmol/L 136-145 09/14/2017 4:30pm 09/14/2017 4:59pm Potassium Level 5.1 mmol/L 3.5-5.1 09/14/2017 4:30pm 09/14/2017 4:59pm Chloride Level 106 mmol/L 98-107 09/14/2017 4:30pm 09/14/2017 4:59pm Carbon Dioxide Level 24 mmol/L 22-29 09/14/2017 4:30pm 09/14/2017 4: 59pm Anion Gap 14.1 mmol/L 8-16 09/14/2017 4:30pm 09/14/2017 4:59pm Blood Urea Nitrogen 39 mg/dL H 7-09/14/2017 4:30pm 09/14/2017 4:59pm Creatinine 1.89 mg/dL H 0.72-1.25 09/14/2017 4:30pm 09/14/2017 4:59pm BUN/Creatinine Ratio 21 6-09/14/2017 4:30pm 09/14/2017 4:59pm Estimat Glomerular Filtration Rate 36 ML/MIN L 60- 09/14/2017 4:30pm 10/2017 4:59pm Ranges were taken from the National Kidney Disease Education Program and the National Kidney Foundation literature. Reference ranges: 60 or greater: Normal 16-59 (for 3 consecutive months): Chronic kidney disease 15 or less: Kidney failure Glucose Level 89 mg/dL 74-118 09/14/2017 4:30pm 09/14/2017 4:59pm Calcium Level 10.1 mg/dL 8.4-10.2 09/14/2017 4:30pm 09/14/2017 4:59pm Bedside Glucose 76 mg/dL 70-120 09/14/2017 4:11pm 09/14/2017 4:21pm Meter ID: [id number] Uric Acid 5.4 mg/dL 4.8-8.0 09/12/2017 6:58am 09/12/2017 12:18pm Phosphorus Level 3.8 MG/DL 2.3-4.7 09/14/2017 6:40am 09/14/2017 7:21am Magnesium Level 1.6 MG/DL 1.3-2.1 09/14/2017 6:40am 09/14/2017 7:21am Total Bilirubin 0.5 mg/dL 0.2-1.2 09/11/2017 10:10pm 09/11/2017 11: 06pm Aspartate Amino Transf (AST/SGOT) 23 IU/L 5-34 09/11/2017 10:10pm 09/11 11:06pm Alanine Aminotransferase (ALT/SGPT) 25 IU/L 0-55 09/11/2017 10:10pm 07/2017 11:06pm Total Protein 7.5 g/dL 6.5-8.1 09/11/2017 10:10pm 09/11/2017 11:06pm Albumin 3.8 g/dL 3.5-5.0 09/11/2017 10:10pm 09/11/2017 11:06pm Globulin 3.7 g/dL H 2.3-3.5 09/11/2017 10:10pm 09/11/2017 11:06pm Albumin/Globulin Ratio 1.0 0.8-2.0 09/11/2017 10:10pm 09/11/2017 11: 06pm Alkaline Phosphatase 57 IU/L 40-150 09/11/2017 10:10pm 09/11/2017 11: 06pm Parathyroid Hormone 11 pg/mL L 15-65 09/12/2017 6:58am 09/13/2017 9: 52am Calcium (Send out) 8.9 mg/dL 8.6-10.2 09/12/2017 6:58am 09/13/2017 9: 52am Parathyroid Hormone Interpretation Comment . 09/12/2017 6:58am 2017 9:52am Interpretation Intact PTH Calcium (pg/mL) (mg/dL) Normal 15 - 65 8.6 - 10.2 Primary Hyperparathyroidism >65 >10.2 Secondary Hyperparathyroidism >65 <10.2 Non-Parathyroid Hypercalcemia <65 >10.2 Hypoparathyroidism <15 < 8.6 Non-Parathyroid Hypocalcemia 15 - 65 < 8.6 Performed at: - [facility] [id number] Merchandising Consultant: Horace Marrufo MD, Phone: [phone] Performed at: - [facility] [id number] [place], [place] [id number] Merchandising Consultant: Jose Alberto Gao MD, Phone: [phone] Procedures Procedure Status Date Provider(s) Cystoscopy with retrograde pyelography Completed 09/13/[address] of abdomen and pelvis without contrast Active 09/11/17 RIVER CRAWFORD NP Ultrasound, renal Active 09/12/17 AJIT SANDOVAL MD Encounters Encounter Location Arrival/Admit Date Discharge/Depart Date Attending Provider Discharged Inpatient [facility] 09/11/17 8:07pm 09/14/17 6:12pm EZ BELL MD
--- NOTE | 2017-10-13 07:38 | Diagnostic Imaging Report ---
PROCEDURE:X-RAY ABDOMEN - KUB COMPARISON:Abdomen one view 09/12/2017. INDICATIONS:RENAL STONES FINDINGS: There is a non-obstructed bowel-gas pattern. Moderate amount of retained feces is present in the colon and rectum. Right ureteral stent is present and in proper position. Punctate calculi project over the inferior pole of the left kidney. There are no calcifications projected over the right renal shadow, expected course of the ureters or bladder. There are no acute osseous abnormalities. The lung bases are clear. CONCLUSION: Left nephrolithiasis. Right ureteral stent. Dictated by: Raul Delgado M.D. on 10/13/2017 at 7:39 Electronically approved by: Raul Delgado M.D. on 10/13/2017 at 7:39
--- NOTE | 2017-10-13 07:39 | Diagnostic Imaging Report ---
PROCEDURE: Frontal and lateral views of the chest. COMPARISON: None. INDICATIONS: PREOP - CALCULI OF KIDNEY FINDINGS: Lines/tubes: None. Lungs: The lungs are well inflated and clear. There is no evidence of pneumonia or pulmonary edema. Pleura: There is no pleural effusion or pneumothorax. Heart and mediastinum: The heart and the mediastinum are normal. Bones: No acute bony abnormality. IMPRESSION: No acute radiographic abnormality. Dictated by: Raul Delgado M.D. on 10/13/2017 at 7:41 Electronically approved by: Raul Delgado M.D. on 10/13/2017 at 7:41
--- NOTE | 2017-10-13 08:34 | Operative Report ---
DATE OF PROCEDURE: October 13, 2017 PREOPERATIVE DIAGNOSIS: Right proximal ureteral calculus. POSTOPERATIVE DIAGNOSIS: Right proximal ureteral calculus. PROCEDURES 1. Staged right-sided shock wave lithotripsy. 2. Supervision of fluoroscopy. ANESTHESIA: General. ESTIMATED BLOOD LOSS: Minimal. COMPLICATIONS: None. INDICATIONS FOR PROCEDURE: Mr. Mckenzie is a very pleasant 62-year-old male with a proximal right ureteral calculus and hydronephrosis. He and I had a long discussion about alternatives, risks and benefits, including doing nothing, shock wave lithotripsy, ureteroscopy, percutaneous surgery and open surgery. He voiced understanding of the options and elected to proceed. PROCEDURE IN DETAIL: After informed consent was obtained, the patient was taken to the operative suite, placed supine on the operating table, and placed in the supine position. The stent was followed. The proximal stone was easily identified. It was compared to the previous retrograde pyelograms, and still remained in the same position. The stone was then localized in the X, Y and Z planes. A total of 3000 shocks at a maximum power setting of 6 were delivered to the stone. The patient tolerated the procedure well and was transported to the recovery room in excellent condition with no untoward events noted. SUPERVISION OF FLUOROSCOPY: I was present throughout the entire procedure and I supervised the use of fluoroscopy as there was no radiologist present. Job#: [id number] LARRY
== END | disposition home or self-care (01) ==
LOC: OR 05:52
PROVIDERS: ATTEND Urology
DX: N13.2 Hydronephrosis with renal and ureteral calculous obstruction (principal); Z96.0 Presence of urogenital implants; I25.10 Atherosclerotic heart disease of native coronary artery without angina pectoris; I25.2 Old myocardial infarction; I10 Essential (primary) hypertension; F41.9 Anxiety disorder, unspecified; F17.210 Nicotine dependence, cigarettes, uncomplicated; Z95.5 Presence of coronary angioplasty implant and graft
CPT/HCPCS: 50590; 71046; 74018; J0696; J1100; J2001; J2250; J2405

== ENCOUNTER → 2017-11-17 | Day surgery (SDC) | payer OTHER ==
[2017-11-15 12:00] LABS: BASOPHILS # (AUTO) 0.1 (0.0-0.1); BASOPHILS % 0.7 % (0.0-1.0); EOSINOPHILS # (AUTO) 0.3 (0.0-0.4); EOSINOPHILS % 3.2 % (0.0-6.0); HEMATOCRIT 47.7 % (38.2-49.6); LYMPHOCYTES # (AUTO) 2.2 (1.0-3.2); MEAN CORPUSCULAR HEMOGLOBIN 32.4 pg (28-32); MEAN CORPUSCULAR HGB CONC 33.5 g/dL (31-35); MEAN CORPUSCULAR VOLUME 96.6 fL (81-99); MONOCYTES # (AUTO) 0.9 (0.2-0.8); MONOCYTES % 10.3 % (4.4-11.3); NEUTROPHILS # (AUTO) 5.2 (2.1-6.9); NEUTROPHILS % 60.5 % (38.7-80.0); PLATELET COUNT 141 x10e3/uL (140-360); RED BLOOD COUNT 4.94 x10e6/uL (4.3-5.7); RED CELL DISTRIBUTION WIDTH 13.2 % (11.7-14.4)
[~2017-11-17] MED LIST changes: +ACETAMINOPHEN 1000 MG/100 ML IV ONE; -EPHEDRINE SULFATE INJ 50 MG/10 ML SYR ONE; +IOPAMIDOL 610MG/1ML 300 MG/ML VIAL IV ONE
--- NOTE | 2017-11-17 06:38 | Diagnostic Imaging Report ---
EXAM: ABDOMEN-1VIEW (KUB) DATE: 11/17/2017 5:40 AM Time stamp on exam: 0543 hours INDICATION: Presurgical assessment COMPARISON: 10/13/2017 FINDINGS: LINES/TUBES: Right-sided double-J ureteral stent is stable in position. BOWEL PATTERN: No evidence for obstruction. SOFT TISSUES: 3 mm calcific density overlying the inferior renal collecting system of the left kidney LUNG BASES: Not included BONES: Degenerative changes of the lumbar spine. IMPRESSION: 1. Nonobstructive bowel gas pattern. 2. No evidence of right-sided nephrolithiasis. 3. 3 mm ossific density overlying the inferior pole of the left renal collecting system compatible with nephrolithiasis. Signed by: Dr. Dannie Adair M.D. on 11/17/2017 6:34 AM
--- NOTE | 2017-11-17 09:34 | Operative Report ---
DATE OF PROCEDURE: November 17, 2017 PREOPERATIVE DIAGNOSES 1. Indwelling right ureteral stent. 2. Right ureteral calculus. 3. Left renal calculus. 4. Hematuria. POSTOPERATIVE DIAGNOSES 1. Indwelling right ureteral stent. 2. Right ureteral calculus. 3. Left renal calculus. 4. Hematuria. PROCEDURES 1. Cystoscopy with staged removal of a right indwelling ureteral stent (entirely separate procedure complicated secondary to encrustation of right indwelling stent). 2. Staged right-sided ureteroscopy with laser lithotripsy (entirely separate staged planned procedure to rid the patient of a right ureteral calculus). 3. Staged cystoscopy with left ureteral catheterization and left retrograde pyelogram (entirely separate procedure for diagnosis of left renal calculi). 4. Staged left-sided shock-wave lithotripsy (entirely separate procedure in a staged fashion to rid the patient of multiple bilateral renal and ureteral calculi). 5. Supervision of fluoroscopy for both ureteroscopy and stent placement and removal portion. 6. Interpretation of retrograde pyelography. ANESTHESIA: General. ESTIMATED BLOOD LOSS: Minimal. COMPLICATIONS: None. INDICATIONS FOR PROCEDURE: Mr. Mckenzie is a very pleasant, 62-year-old male with a history of bilateral renal calculi and ureteral calculi. He and I had a long discussion regarding the alternatives, risks and benefits, including doing nothing, cystoscopy, stent removal, ureteroscopy, shock-wave lithotripsy, percutaneous surgery, open surgery. He voiced an understanding of the options, the alternatives, and the risks and benefits, and he elected to proceed. PROCEDURE IN DETAIL: After informed consent was obtained, the patient was taken to the operative suite and placed supine on the operating table and underwent general anesthesia. He was placed in the dorsal lithotomy position. He was sterilely prepped and draped in the standard fashion for cystoscopy. Attempt was made to insert a 22.5-Barbadian cystoscope, and this failed. A 21-Barbadian cystoscope was inserted per urethra. There were bulbar urethral strictures. A stent was seen extruding from the right ureteral orifice. A guidewire was inserted alongside the stent. The stent was grasped, and it was removed intact. It was encrusted. The ureteroscope was then driven to the level of the offending ureteral stone. Utilizing a 365 micron laser fiber, the stone was obliterated into fragments smaller than the wire. At this time, the ureteroscope was driven to the level of the renal pelvis. Retrograde pyelogram was performed with the ureteroscope, which revealed dilated collecting system but no stones. Attention was then turned to the left ureteral orifice, which was catheterized and a retrograde pyelogram was performed with a 5-Barbadian open-ended catheter revealing a left lower pole 6 x 6 mm renal calculus. At this time, the shock head was brought into view. The stone was localized in the X-Y-Z planes. A total of 2,000 shocks at a maximum setting of 6 was delivered to the stone. The stone was seen to be completely obliterated. The bladder was drained. The patient was awakened from anesthesia and transported to the recovery room in excellent condition. SUPERVISION OF FLUOROSCOPY AND INTERPRETATION OF RETROGRADE PYELOGRAPHY: I was present throughout the entire procedure and supervised the use of fluoroscopy. There was no radiologist present at any time during the procedure. Attention was turned toward the left and right ureteral orifices, which were catheterized and retrograde pyelograms were performed. The right side revealed dilated collecting systems with the ureteroscope in the proximal renal pelvis. The left side revealed a stone in the left lower pole, 6 x 6 mm. Interim resolution of the stone status post lithotripsy. Job#: [id number]
== END | disposition home or self-care (01) ==
LOC: OR 05:14
PROVIDERS: ATTEND Urology
DX: N20.1 Calculus of ureter (principal); N20.0 Calculus of kidney; Z46.6 Encounter for fitting and adjustment of urinary device; N35.8 Other urethral stricture; R05 Cough; I25.2 Old myocardial infarction; I25.10 Atherosclerotic heart disease of native coronary artery without angina pectoris; I10 Essential (primary) hypertension; M10.9 Gout, unspecified; F41.9 Anxiety disorder, unspecified; F17.200 Nicotine dependence, unspecified, uncomplicated; Z01.812 Encounter for preprocedural laboratory examination; Z95.5 Presence of coronary angioplasty implant and graft
CPT/HCPCS: 36415; 50590; 52353; 74018; 85025; J0696; J1100; J2001; J2250; J2405; Q9967

== ENCOUNTER → 2017-12-26 | Outpatient (CLI) | payer OTHER ==
[~2017-12-26] MED LIST changes: -ACETAMINOPHEN 1000 MG/100 ML IV ONE; -CEFTRIAXONE SOD 1 GM VIAL ONE; -DEXAMETHASONE SOD PHOS INJ 4 MG/ML VIAL ONE; -FENTANYL CITRATE/PF 100MCG/2 ML INJ ONE; -IOPAMIDOL 610MG/1ML 300 MG/ML VIAL IV ONE; -LIDOCAINE HCL 2% LOCAL INJ 5 ML SDV VIAL INJ ONE; -MIDAZOLAM HCL 2 MG/2 ML VIAL ONE; -ONDANSETRON HCL INJ 2 MG/ML VIAL ONE; -PROPOFOL IV EMULSION 10 MG/ML 20 ML VIAL ONE; -SEVOFLURANE INHAL SOLN 250 ML PEN BTL ONE
--- NOTE | 2017-12-26 14:53 | Diagnostic Imaging Report ---
PROCEDURE:X-RAY ABDOMEN - KUB COMPARISON:[facility], DX, ABDOMEN-1VIEW (KUB), 11/17/2017, 5:43. INDICATIONS:CALCULUS OF KIDNEY FINDINGS: There is a non-obstructed bowel-gas pattern. Interval removal of previously visualized right double-J internal ureteral stent. The previously described 3 mm calcific density overlying the lower pole of the left renal shadow is not seen in the current exam. Ill-defined 3 mm radiopaque density projects over the superior pole of the right renal shadow, between the posterior aspects of the right 11th and 12th ribs. No radiopaque densities project over the expected course of ureters or bladder. Stable leftward fracture of the thoracolumbar spine. Stable, nonaggressive appearing 8 mm sclerotic focus in the right acetabulum, likely representing a bone island. CONCLUSION: 1. Ill-defined 3 mm radiopaque density projecting over the superior pole. The right renal shadow, which likely represents a nonobstructing calculus. 2. Previously described 3 mm nonobstructing calculus in the left inferior pole is not seen on the current exam. 3. Interval removal of right double-J internal ureteral stent Triston Hoang M.D. Dictated by: Triston Hoang M.D. on 12/26/2017 at 12:51 Electronically approved by: Triston Hoang M.D. on 12/26/2017 at 12:51
== END ==
LOC: RAD 12:01
PROVIDERS: ATTEND Urology
DX: R31.21 Asymptomatic microscopic hematuria (principal)
CPT/HCPCS: 74018

== ENCOUNTER → 2018-06-06 | Outpatient (CLI) | payer OTHER ==
--- NOTE | 2018-06-06 14:44 | Diagnostic Imaging Report ---
PROCEDURE:X-RAY ABDOMEN - KUB COMPARISON:[facility], DX, ABDOMEN-1VIEW (KUB), 12/26/2017, 12:08. INDICATIONS:CALCULUS OF KIDNEY FINDINGS: Tiny right upper pole renal stone estimated at 3 mm again noted. There are no dilated loops of bowel to suggest obstruction. There are no masses. There is no evidence of free air. No acute osseous abnormalities are present. Degenerative changes of the spine. CONCLUSION: Tiny right upper pole renal stone. Jaime Fuller D.O. Dictated by: Jaime Fuller D.O. on 06/06/2018 at 14:55 Electronically approved by: Jaime Fuller D.O. on 06/06/2018 at 14:55
== END ==
LOC: RAD 13:03
PROVIDERS: ATTEND Urology
DX: N20.0 Calculus of kidney (principal)
CPT/HCPCS: 74018